=== PATIENT | male | born 1990 | race Hispanic/Latino ===

== ENCOUNTER 2016-12-29 08:16 | Day surgery (SDC) | payer MEDICAID ==
[2016-12-29 08:52] VITALS: BMI 30.8
[2016-12-29] MEDS ORDERED: Midazolam 2 MG/2 ML VIAL ONE (09:56)
[2016-12-29] MEDS ORDERED: Propofol 10 mg/ml Inj (20 ML) ONE (09:56)
[2016-12-29] MEDS ORDERED: Simethicone 40 mg/0.6 ml Liquid (30 ml) ONE (10:22)
[2016-12-29] MEDS ORDERED: Lactated Ringer's 500 ML IV SCH (10:30)
[2016-12-29 11:17] VITALS: TEMP 97.8
[2016-12-29 11:45] VITALS: BP 97/65; PULSE 59; RESP 15; O2SAT 98
== END 2016-12-29 12:29 | disposition home or self-care (01) ==
LOC: C.ENDO 08:16
PROVIDERS: ATTEND Internal Medicine
DX: R10.84 Generalized abdominal pain (principal); R14.0 Abdominal distension (gaseous); K92.1 Melena; K21.9 Gastro-esophageal reflux disease without esophagitis; K57.90 Diverticulosis of intestine, part unspecified, without perforation or abscess without bleeding; K64.9 Unspecified hemorrhoids; K29.70 Gastritis, unspecified, without bleeding
CPT/HCPCS: 43239; 45378; 88305; 88312; 88313; 88342; J2250; J2704; J3010; J7120